=== PATIENT | female | born 1950 | race Caucasian/White ===

== ENCOUNTER 2016-04-30 11:58 | Inpatient (IN) | payer OTHER, MEDICARE ==
[~2016-04-30] VITALS: Ht 160 cm; Wt 50.3 kg
[2016-05-12] MEDS ORDERED: LEUC5TAB PO (11:36)
[2016-05-12] MEDS ORDERED: FOLI1TAB4 PO (11:36)
[2016-05-12] MEDS ORDERED: SELE125T PO (11:36)
[2016-05-12] MEDS ORDERED: METH2.5T PO (11:36)
[2016-05-12] MEDS ORDERED: TOFA5TAB PO (11:36)
[2016-05-12] MEDS ORDERED: COQ-50CA2 PO (11:36)
--- NOTE | 2016-05-27 00:12 | MH ---
cc: SANDRA VEGA DATE OF ADMISSION: 05/27/2016 ADMITTING DIAGNOSIS: Malfunctioning right total knee replacement arthroplasty. HISTORY OF PRESENT ILLNESS: This patient is a 65 year-old female with juvenile onset rheumatoid arthritis. The patient many years ago came to total knee replacement arthroplasty on the right. She is having significant malfunction of the right knee. She has significant subluxation with severe wear of the components. She presents now for revision knee replacement arthroplasty. PAST MEDICAL HISTORY: See attached notes. SOCIAL HISTORY, FAMILY HISTORY, AND REVIEW OF SYSTEMS: See attached notes. PHYSICAL EXAMINATION: GENERAL: The patient is a 65 year-old female in moderate distress with her right knee. HEENT: Normocephalic, atraumatic. Pupils equal, round, reactive to light and accommodation. Extraocular motions intact. NECK: Supple. CHEST: Clear. HEART: Regular rate and rhythm. ABDOMEN: Soft, nontender, normoactive bowel sounds. MUSCULOSKELETAL EXAMINATION: Right knee, pain with range of motion, well-healed anterior incision, marked restricted range of motion, moderate deformity, moderate instability. Neurologic and vascular examination is within normal limits. Chronic rheumatoid changes are seen in both upper and lower extremities. IMPRESSION: 1. Status post right total knee replacement arthroplasty. 2. Malfunctioning right total knee replacement arthroplasty. 3. History of juvenile rheumatoid arthritis. PLAN: Revision right total knee replacement arthroplasty. CONSENT: There are risks with surgery including infection, bleeding, loss of motion, continued pain, need for further surgery, neurologic or vascular injury, etc. The patient understands these issues and wishes to press on with surgery as outlined above. Sandra Vega MD [facility] /11:37 PM /12:00 AM
[2016-05-27] MEDS ORDERED: METOPROLOL TARTRATE 25 MG TAB PO PRN (10:00)
[2016-05-27] MEDS ORDERED: INSULIN HUMAN REGULAR 1,000 UNITS/10 ML VIAL SQ PRN (10:00)
[2016-05-27] MEDS ORDERED: LACTATED RINGER'S 1000 ML IV SCH (10:00)
[2016-05-27] MEDS ORDERED: SODIUM CHLORID 0.9% 500 ML IV SCH (10:00)
[2016-05-27] MEDS ORDERED: ceFAZolin 2 GM PREMIX 50 ML IV SCH (10:00)
[2016-05-27] MEDS: POVIDONE IODINE 7.5% SCRUB 118 ML BOTTLE TOP SCH (10:00)
[2016-05-27] MEDS ORDERED: VANCOMYCIN 1000 MG/NS 250 ML (for <70 kg) IV SCH ×2 (10:00)
[2016-05-27 10:26] VITALS: BP 175/92; PULSE 83; RESP 18; TEMP 98.7; O2SAT 97
[2016-05-27] MEDS ORDERED: GENTAMICIN SULFATE 80 MG/2 ML VIAL ONE (10:28)
[2016-05-27] MEDS: EXPAREL PERI-ARTICULAR INJECTION (TOTAL VOL. 60 ML) P-ARTICULR SCH ×4 (11:00→13:17)
[2016-05-27] MEDS: TRANEXAMIC ACID IV SCH ×2 (11:00→12:02)
[2016-05-27] MEDS: SODIUM CHLORIDE 0.9% IV SCH ×2 (11:00→12:02)
[2016-05-27] MEDS ORDERED: WALKER WHEELS/F1 MIS (11:02)
[2016-05-27] MEDS ORDERED: CPMMACHINE (11:02)
[2016-05-27] MEDS ORDERED: MISC-163 (11:03)
--- NOTE | 2016-05-27 11:05 | HHI.DS ---
Discharge Summary Admission Date May 27, 2016 at 08:57 Discharge Date: May 30, 2016 Admitting Diagnosis see below Diagnosis: (1) Right knee pain Diagnosis: Principal (2) Mechanical complic of internal orthopedic device, implant or graft Diagnosis: Principal (3) Presence of total right knee joint prosthesis Diagnosis: Principal Procedures Revisional right total knee arthroplasty Brief History This is a 65 year old female rheumatoid patient with a previous right knee replacement in [id number]. She did well for many years. She began having increased pain a year ago. She sought out medical treatment after attempting activity changes. Imaging studies were performed. There was some concern over loosening and osteolysis about the prosthesis. After discussing treatment options, surgical treatment was recommended and she elected to move forward with surgical revision. Hospital Course Surgical treatment was performed on the day of admission without complication. She recovered well in PACU and was very comfortable because of her RLE block. She was transferred to the orthopaedic floor. Pain was controlled with IV and oral medications. DVT prophylaxis was initiated pod#1. She was compliant with physical therapy and all TKA precautions. After 3 days she was found to be stable and discharged to detention with instruction to continue her physical therapy and to pursue a high fiber diet. Pt Condition on Discharge: Stable Discharge Disposition: Discharge to SNF Discharge Instructions Diet Instructions: High Fiber Diet Activities You Can Perform: Weight Bearing as Lynne Additional Activity Instruc.: TKA precautions New Medications: 3-in-1 Bedside Toilet (3-in-1 Bedside Toilet) 1 Mis Mis 1 EA .ROUTE DIRECTED #1 EA CPM-Continuous Passive Motion Machine (CPM-Continuous Passive Motion Machine) 1 Ea Device 1 EA .ROUTE DIRECTED #1 Ref 0 EA Walker with Front Wheels (Walker with Front Wheels) 1 Mis Mis 1 EA .ROUTE DIRECTED #1 Ref 0 EA Oxycodone-Acetaminophen (Oxycodone-Acetaminophen) 5-325 mg Tab 1 TAB PO Q4H PRN PAIN LESS THAN 5 ON SCALE #50 TAB Rivaroxaban (Xarelto) 10 Mg Tab 10 MG PO Q24H Prevent Blood Clot #15 TAB Continued Medications: Coenzyme Q10 (Ubidecarenone) (Coq-10) 50 Mg Cap 50 MG PO DAILY Folic Acid (Folate) 1 Mg Tab 800 MCG PO DAILY Nutritional Supplement Ref 0 TAB Leucovorin (Leucovorin) 5 Mg Tab 10 MG PO WEEKLY Methotrexate (Methotrexate) 2.5 Mg Tab 15 MG PO Q7D Ref 0 TAB Selenium (Selenimin) 125 Mcg Tab 125 MG PO DAILY Nutritional Supplement Ref 0 TAB Tofacitinib (Xeljanz) 5 Mg Tab 5 MG PO BID Arthritis #60 Ref 0 TAB Gladis Marie May 27, 2016 11:05
[2016-05-27] MEDS ORDERED: APREPITANT 40 MG CAP ONE (11:07)
[2016-05-27] MEDS ORDERED: MIDAZOLAM HCL 2 MG/2 ML VIAL ONE ×2 (11:12→12:17)
[2016-05-27] MEDS ORDERED: DEXAMETHASONE SOD PHOS 4 MG/ML VIAL ONE (11:26)
[2016-05-27] MEDS ORDERED: ceFAZolin INJ 1,000 MG VIAL ONE (11:57)
[2016-05-27] MEDS ORDERED: LACTATED RINGER'S 1000 ML INJ 1,000 ML IV ONE (12:10)
[2016-05-27] MEDS ORDERED: PROPOFOL 200 MG/20 ML AMP IV ONE (12:10)
[2016-05-27] MEDS ORDERED: BUPIVACAINE HCL PF 0.5% 30 ML VIAL NB ONE ×2 (12:44)
[2016-05-27] MEDS ORDERED: DEXAMETHASONE SOD PHOS PF 10 MG/ML VIAL IV ONE (12:45)
[2016-05-27] MEDS ORDERED: XARE10TA PO (15:43)
[2016-05-27] MEDS ORDERED: OXYC1TAB63 PO (15:43)
[2016-05-27] MEDS ORDERED: MISCELLANEOUS PHARMACY INFORMATION XX ONE (15:45)
[2016-05-27] MEDS ORDERED: SODIUM CHLORIDE 0.9% FLUSH 5 ML FLUSH IVF PRN (15:45)
[2016-05-27] MEDS ORDERED: MORPHINE SULFATE 8 MG/ML INJ IM PRN (15:45)
[2016-05-27] MEDS ORDERED: TEMAZEPAM 15 MG CAP PO PRN (15:45)
[2016-05-27] MEDS ORDERED: oxyCODONE/ACETAMINOPHEN 5 MG/325 MG TAB PO PRN ×2 (15:45)
[2016-05-27] MEDS ORDERED: MISCELLANEOUS NURSING INFORMATION XX PRN (15:45)
--- NOTE | 2016-05-27 15:52 | PD.OP ---
cc: Pierre Pride MD Operative Report Date of Surgery: May 27, 2016 Preoperative Diagnosis: Malfunctioning right total knee replacement arthroplasty. Loosening right knee components. Where a polyethylene right knee Postoperative Diagnosis: Same. Global metallosis right knee Procedure: Revision right total knee replacement arthroplasty, 3 components Anesthesia: Spinal with block Surgeon: Pierre Pride Inside Sales Manager(s): ISAI Spence Operation and Findings: EBL: 250 cc INDICATION: This patient presents with long-standing arthritis of the knee. She has long-standing rheumatoid arthritis. Over 20 years ago she came to right total knee replacement arthroplasty. She is having evidence of global failure of the right total knee with subluxation and evidence of significant metallosis in the knee with wear through the polyethylene. She presents now for revision arthroplasty NOTE: Kaylen Spence PA-C was present for the entire surgical procedure as my certified physician assistant. In my medical opinion her skill and care was necessary for proper management of this patient. TOURNIQUET TIME: 134 minutes COMPANY: [employer] FEMUR: Size 2, posterior stabilized, 90 mm x 13 mm cemented stem TIBIA: Size 3, fixed bearing, 60 mm cemented stem PATELLA: 38 mm POLYETHYLENE INSERT: 20 mm, routine posterior stabilized PROCEDURE: This patient was brought the operating room and anesthetized in the supine position. The patient was positioned supine on the table. The tourniquet was placed about the thigh, and the leg was scrubbed with alcohol followed by Hibiclens followed by ChloraPrep and draped sterilely. A timeout was done, and antibiotics were given. After exsanguination the tourniquet was inflated to 250 mmHg. the previous incision was excised. A medial parapatellar arthrotomy was performed. Significant metallosis was found. A total capsulectomy was performed. It was where through the polyethylene lateral posterior as well as posterior medial. This had worn through the tibial plate, almost completely posterior and lateral. Using a combination of osteotomes and saw, the patellar component was loosened. A freehand cut was made allowing sizing for a 38 mm all polyethylene component. Drill holes were made and a metal cap was placed over the exposed patella. The attention was directed to the femur. Osteotomes were used to loosen the femoral component. This was removed in a retrograde fashion. Bone was salvaged to avoid significant buildup. The attention was directed to the canal which was reamed and a temporary guide placed. We performed distal anterior posterior and chamfer cuts for a #2 femoral component. We utilized a regular box for a routine posterior stabilized component. The attention was directed to the tibia. Osteotome was used to loosen the tibial component. It was partially loose to begin with. This was removed in a retrograde fashion. This was reamed appropriately and then cut with an intramedullary guide. We removed a 0 mm from the posterior medial corner removing approximately 68-9 mm anteriorly and about the same laterally. This was then trialed and found that a 20 mm insert fit best stabilizing in full extension and full flexion. The bony surfaces were prepared. The components were assembled on the back table. 2 separate packs of methacrylate were mixed one for the tibia and one for the femur. We needed a third batch for the patella. We cemented the tibia first. We used a #6 Pelikonuy cement restrictor and filled the canal retrograde and pressurized. The component was in proper rotation based on intraoperative measurements. We cemented the femoral component and a likewise fashion. Cementing was utilized because of the patient's severe osteopenia and concern of stress risers associated with an uncemented stem which would needed to be 18- 20 mm. The cement was allowed harden. A trial reduction showed that a 20 mm insert fit best. The tourniquet was let down. Hemostasis was controlled. On the back table a third batch of methyl methacrylate was mixed and the patellar components cemented without difficulty. The final plastic was inserted and the knee reduced. The knee range of motion was from full extension to 125 flexion. No instability was noted. Overall alignment was very satisfactory. A drain was brought through a separate stab incision. The arthrotomy was repaired with interrupted #1 Vicryl suture, subcutaneous tissue 2-0 Vicryl suture and skin with metallic meg A sterile dressing was applied. Sponge counts, needle counts and instrument counts were all correct. The patient tolerated procedure well and was taken to recovery in satisfactory condition. FINDINGS: A Aisha metallosis. There was loosening of the tibial component. There was some subsidence posteriorly. There were multiple screws within the tibial component which was removed without difficulty. The final solution was very satisfactory. Pierre Pride MD May 27, 2016 15:52
[2016-05-27] MEDS ORDERED: KETAMINE HCL 500 MG/5 ML VIAL ONE (15:53)
[2016-05-27] MEDS ORDERED: DO NOT ADM ANY ANTICOAGULANT DRUGS XX PRN (16:00)
[2016-05-27] MEDS ORDERED: Post-op Orders (for Pharmacy) MISC XX ONE (16:00)
[2016-05-27] MEDS ORDERED: *morphine SULFATE 8 MG/ML PERIprocedure ONLY ONE (16:19)
[2016-05-27] MEDS: LACTATED RINGER'S 1000 ML INJ 1,000 ML IV SCH (16:30)
--- NOTE | 2016-05-27 16:46 | RADRPT ---
EXAM DATE/TIME: 05/27/2016 16:11 [facility] COMPARISON: No previous studies available for comparison. INDICATIONS : Post OP. MEDICAL HISTORY : None. SURGICAL HISTORY : None. ENCOUNTER: Initial ACUITY: 1 day PAIN SCORE: Non-responsive. LOCATION: Right knee FINDINGS: Total knee arthroplasty with longstem femoral and tibial components and with hyperdense packing withi n the marrow of the proximal tibia and distal femur. Alignment is near-anatomic. Surgical drains an d multiple skin meg are present. CONCLUSION: Postsurgical findings from total knee arthroplasty. Sammy Byrnes MD on May 27, 2016 at 16:43 Board Certified Radiologist. This report was verified electronically.
[2016-05-27 18:20] VITALS: BP 128/66; PULSE 72; RESP 17; TEMP 96; O2SAT 99
[2016-05-27] MEDS: MAGNESIUM HYDROXIDE SUSP 30 ML CUP PO SCH (19:24)
[2016-05-27] MEDS: SODIUM CHLORIDE 0.9% FLUSH 5 ML FLUSH IVF SCH (19:27)
[2016-05-27] MEDS: SENNOSIDES 8.6 MG TAB PO SCH (19:27)
[2016-05-27 20:00] VITALS: BP 97/53; PULSE 86; RESP 18; TEMP 97.4; O2SAT 98
[2016-05-27] MEDS: ONDANSETRON HCL 4 MG/2 ML VIAL IV PUSH PRN (20:29)
[2016-05-28] VITALS (7 sets, daily range): BP systolic 98–138; BP diastolic 47–96; PULSE 70–88; RESP 16–20; TEMP 96.3–98; O2SAT 94–98
[2016-05-28] MEDS: LACTATED RINGER'S 1000 ML INJ 1,000 ML IV SCH ×2 (04:30→17:00)
[2016-05-28 05:17] LABS: HEMATOCRIT 28.4 % (35.0-46.0); REVIEW FLAG FINAL
--- NOTE | 2016-05-28 07:47 | PD.ORT.PN ---
Subjective Subjective Remarks Right knee very comfortable as she is still getting relief from the block. Weakness also due to block. Sensation toes'just starting to return'. No other complaints. Mild nausea yesterday but resolved. No CP, SOB, abd pain. Planning on d/c to SNF. Objective Vitals Vital Signs Date Time Temp Pulse Resp B/P Pulse Ox O2 Delivery O2 Flow Rate FiO2 05/28/16 04:00 96.3 88 18 98/58 96 05/28/16 00:00 96.3 81 20 106/67 98 05/27/16 20:00 97.4 86 18 97/53 98 05/27/16 18:20 96.0 72 17 128/66 99 05/27/16 18:07 Nasal Cannula 2.00 05/27/16 17:00 97.2 74 14 119/69 98 Room Air 05/27/16 16:45 65 14 131/73 96 Room Air 05/27/16 16:30 69 14 111/66 96 Room Air 05/27/16 16:15 77 14 114/74 98 Nasal Cannula 2 05/27/16 15:59 97.6 85 14 120/76 98 Nasal Cannula 2 05/27/16 10:26 98.7 83 18 175/92 97 I/O 05/27/16 05/27/16 05/27/16 05/28/16 05/28/16 05/28/16 07:00 15:00 23:00 07:00 15:00 23:00 Intake Total 2190 ml 610 ml Output Total 1690 ml 360 ml Balance 500 ml 250 ml Intake Oral 240 ml 240 ml IV Total 550 ml 370 ml Other 1400 ml Output Urine Total 1325 ml 300 ml Drainage Total 265 ml 60 ml Estimated Blood Loss 100 ml # Bowel Movements 0 0 Result Diagram: 05/28/16 0450 Procedures Revisional right total knee arthroplasty Objective Remarks Laying in bed, CKS right leg NAD VSS RLE CKS in place, dressing c/d/i, drain in place, mild swelling and warmth thigh and calf supple, neg homans motor could not be assessed, +/- sens foot, +nvi Assessment & Plan Ortho Post Op Day #: 1 Problem List: (1) Right knee pain (2) Mechanical complic of internal orthopedic device, implant or graft (3) Presence of total right knee joint prosthesis Assessment and Plan pod#1 s/p Rev R TKA Pain well controlled. Block yet to wear off. PO pain meds as needed. Xarelto 10mg qd. IS encouraged. PT - WBAT RLE w walker. CKS when in bed. D/C right knee drain. Ok to redress drain site. Hold incision site dressing. D/C planning, SNF tuesday. Prefers [facility] if possible. F/U in 2 weeks as scheduled. Gladis Marie May 28, 2016 07:47
--- NOTE | 2016-05-28 07:47 | HHI.DCPOC ---
Discharge Care Plan Diagnosis: (1) Right knee pain (2) Mechanical complic of internal orthopedic device, implant or graft (3) Presence of total right knee joint prosthesis Your Health Problems Are: Incision/Drains Goals to Promote Your Health * To prevent worsening of your condition and complications * To maintain your health at the optimal level Directions to Meet Your Goals Take your medications as prescribed Follow your dietary instruction Follow activity as directed Keep your appointments as scheduled Take your immunizations and boosters as scheduled If your symptoms worsen call your PCP, if no PCP go to Urgent Care Center or Emergency Room Smoking is Dangerous to Your Health. Avoid second hand smoke Call the 24-hour hour crisis hotline for domestic abuse at Gladis Marie May 28, 2016 07:47
[2016-05-28] MEDS ORDERED: COENZYME Q10 50 MG PO SCH (09:00)
[2016-05-28] MEDS ORDERED: SELENIUM PO SCH (09:00)
[2016-05-28] MEDS: FOLIC ACID 1 MG TAB PO SCH (09:00)
[2016-05-28] MEDS: SODIUM CHLORIDE 0.9% FLUSH 5 ML FLUSH IVF SCH ×2 (09:00→20:43)
[2016-05-28] MEDS ORDERED: TOFACITINIB 5 MG PO SCH (09:00)
[2016-05-28] MEDS: MAGNESIUM HYDROXIDE SUSP 30 ML CUP PO SCH ×2 (09:00→20:42)
[2016-05-28] MEDS: POVIDONE IODINE 7.5% SCRUB 118 ML BOTTLE TOP SCH (10:00)
[2016-05-28] MEDS: EXPAREL PERI-ARTICULAR INJECTION (TOTAL VOL. 60 ML) P-ARTICULR SCH ×2 (11:00)
[2016-05-28] MEDS: TRANEXAMIC ACID IV SCH (11:00)
[2016-05-28] MEDS: SODIUM CHLORIDE 0.9% IV SCH (11:00)
[2016-05-28] MEDS: RIVAROXABAN 10 MG TAB PO SCH (14:05)
[2016-05-28] MEDS: SENNOSIDES 8.6 MG TAB PO SCH (20:43)
[2016-05-29] VITALS: BP 110/53; PULSE 82; RESP 18; TEMP 97.8; O2SAT 97
[2016-05-29] MEDS: LACTATED RINGER'S 1000 ML INJ 1,000 ML IV SCH ×2 (05:30→18:00)
[2016-05-29 05:51] LABS: HEMATOCRIT 26.3 % (35.0-46.0); REVIEW FLAG FINAL
[2016-05-29 08:00] VITALS: BP 130/61; PULSE 80; RESP 18; TEMP 97.2; O2SAT 97
[2016-05-29] MEDS: ONDANSETRON HCL 4 MG/2 ML VIAL IV PUSH PRN (08:51)
[2016-05-29] MEDS: SODIUM CHLORIDE 0.9% FLUSH 5 ML FLUSH IVF SCH ×2 (08:51→21:00)
[2016-05-29] MEDS: MAGNESIUM HYDROXIDE SUSP 30 ML CUP PO SCH ×2 (08:51→21:00)
[2016-05-29] MEDS: FOLIC ACID 1 MG TAB PO SCH (08:51)
--- NOTE | 2016-05-29 09:00 | PD.ORT.PN ---
Subjective Subjective Remarks Patient comfortable. Pain controlled. Objective Vitals Vital Signs Date Time Temp Pulse Resp B/P Pulse Ox O2 Delivery O2 Flow Rate FiO2 05/29/16 00:00 97.8 82 18 110/53 97 05/28/16 20:00 97.8 82 18 110/53 97 05/28/16 16:00 98.0 77 16 138/70 94 05/28/16 12:00 98.0 88 17 112/47 98 05/28/16 09:20 96 I/O 05/28/16 05/28/16 05/28/16 05/29/16 05/29/16 05/29/16 07:00 15:00 23:00 07:00 15:00 23:00 Intake Total 610 ml 720 ml 240 ml Output Total 360 ml 1870 ml Balance 250 ml -1150 ml 240 ml Intake Oral 240 ml 720 ml 240 ml IV Total 370 ml Output Urine Total 300 ml 1850 ml Drainage Total 60 ml 20 ml # Voids 2 # Bowel Movements 0 0 0 Result Diagram: 05/29/16 0502 Procedures Revisional right total knee arthroplasty Objective Remarks Laying in bed, CKS right leg NAD VSS RLE CKS in place, dressing c/d/i, drain in place, mild swelling and warmth thigh and calf supple, neg homans motor could not be assessed, +/- sens foot, +nvi Assessment & Plan Problem List: (1) Right knee pain (2) Mechanical complic of internal orthopedic device, implant or graft (3) Presence of total right knee joint prosthesis Assessment and Plan pod#2 s/p Rev R TKA Pain well controlled. Block yet to wear off. Prescription for Roxicodone 5 mg PO written Xarelto 10mg qd. IS encouraged. PT - WBAT RLE w walker. CKS when in bed. D/C right knee drain. Ok to redress drain site. Hold incision site dressing. D/C planning, SNF tuesday. [facility] if possible. F/U in [address] Sow present during the assessment of patient. Aurelio Cosby May 29, 2016 09:00
[2016-05-29] MEDS: POVIDONE IODINE 7.5% SCRUB 118 ML BOTTLE TOP SCH (10:00)
[2016-05-29 12:00] VITALS: BP 158/65; PULSE 95; RESP 18; TEMP 99.4; O2SAT 95
[2016-05-29] MEDS: RIVAROXABAN 10 MG TAB PO SCH (15:22)
[2016-05-29 16:00] VITALS: BP 133/103; PULSE 88; RESP 18; TEMP 98.8; O2SAT 97
[2016-05-29 20:00] VITALS: BP 133/64; PULSE 85; RESP 18; TEMP 98.7; O2SAT 97
[2016-05-29] MEDS: SENNOSIDES 8.6 MG TAB PO SCH (21:00)
[2016-05-30 00:12] VITALS: BP 151/65; PULSE 90; RESP 18; TEMP 99.6; O2SAT 96
[2016-05-30 05:14] VITALS: BP 125/65; PULSE 90; RESP 18; TEMP 98.2; O2SAT 96
[2016-05-30] MEDS: LACTATED RINGER'S 1000 ML INJ 1,000 ML IV SCH (06:30)
[2016-05-30 08:00] VITALS: BP 137/75; PULSE 98; RESP 19; TEMP 96.9; O2SAT 97
[2016-05-30] MEDS: SODIUM CHLORIDE 0.9% FLUSH 5 ML FLUSH IVF SCH (09:41)
[2016-05-30] MEDS: FOLIC ACID 1 MG TAB PO SCH (09:41)
[2016-05-30] MEDS: MAGNESIUM HYDROXIDE SUSP 30 ML CUP PO SCH (09:41)
--- NOTE | 2016-05-30 11:24 | PD.ORT.PN ---
Subjective Subjective Remarks Pt comfortable Objective Vitals Vital Signs Date Time Temp Pulse Resp B/P Pulse Ox O2 Delivery O2 Flow Rate FiO2 05/30/16 09:41 Room Air 05/30/16 08:00 96.9 98 19 137/75 97 05/30/16 05:14 98.2 90 18 125/65 96 05/30/16 00:12 99.6 90 18 151/65 96 05/29/16 20:00 98.7 85 18 133/64 97 05/29/16 18:41 Room Air 05/29/16 16:00 98.8 88 18 133/103 97 05/29/16 12:00 99.4 95 18 158/65 95 I/O 05/29/16 05/29/16 05/29/16 05/30/16 05/30/16 05/30/16 07:00 15:00 23:00 07:00 15:00 23:00 Intake Total 240 ml 720 ml 240 ml Balance 240 ml 720 ml 240 ml Intake Oral 240 ml 720 ml 240 ml # Voids 2 6 1 2 # Bowel Movements 0 1 0 0 Result Diagram: 05/29/16 0502 Procedures Revisional right total knee arthroplasty Objective Remarks Using CPM NAD VSS RLE dressing c/d/i, mild serous staining of dressing mild swelling and warmth thigh and calf supple, neg homans motor could not be assessed, +/- sens foot, +nvi Assessment & Plan Problem List: (1) Right knee pain (2) Mechanical complic of internal orthopedic device, implant or graft (3) Presence of total right knee joint prosthesis Assessment and Plan pod#3 s/p Rev R TKA Pain well controlled. Prescription for Roxicodone 5 mg PO written Xarelto 10mg qd. IS encouraged. PT - WBAT RLE w walker. CKS when in bed. Leave dressing in place. D/C today- [facility] F/U in 2 weeks as scheduled. Jose Sow MD May 30, 2016 11:24
[2016-05-30 12:00] VITALS: BP 122/66; PULSE 89; RESP 18; TEMP 99; O2SAT 97
[2016-05-30] MEDS: RIVAROXABAN 10 MG TAB PO SCH (14:58)
== END 2016-05-30 16:43 | DRG 468 ==
LOC: EDUNIT# 05-11 12:30 → HSDI 05-27 08:57 → N06B 05-27 18:18
PROVIDERS: ADMIT Orthopaedic Surgery Orthopaedic Surgery of the Spine; ATTEND Orthopaedic Surgery Orthopaedic Surgery of the Spine
PROC: 0SPC0JZ Removal of Synthetic Substitute from Right Knee Joint, Open Approach (ICD-10-PCS; 2016-05-27)
PROC: 3E0T3CZ (ICD-10-PCS; 2016-05-27)
PROC: 3E0T3CZ (ICD-10-PCS; 2016-05-27)
PROC: 3E0T3CZ (ICD-10-PCS; 2016-05-27)
PROC: 0SRC0J9 Replacement of Right Knee Joint with Synthetic Substitute, Cemented, Open Approach (ICD-10-PCS; principal; 2016-05-27 11:47)
DX: T84.062A Wear of articular bearing surface of internal prosthetic right knee joint, initial encounter (principal); M08.00 Unspecified juvenile rheumatoid arthritis of unspecified site; Y79.2 Prosthetic and other implants, materials and accessory orthopedic devices associated with adverse incidents; Y92.9 Unspecified place or not applicable; Y83.8 Other surgical procedures as the cause of abnormal reaction of the patient, or of later complication, without mention of misadventure at the time of the procedure; R11.0 Nausea
CPT/HCPCS: 73560; 85014; 85018; 86850; 86900; 86901; 86920; 94150; C1776; C9290; J0690; J1100; J1580; J2250; J2270; J2405; J3010; J3370; J7050; J7120; J8501; L1830

== ENCOUNTER → 2016-05-12 | Outpatient (CLI) | payer OTHER ==
[~2016-05-12] MED LIST: COQ-50CA2 PO; CPMMACHINE; FOLI1TAB4 PO; LEUC5TAB PO; METH2.5T PO; MISC-163; OXYC1TAB63 PO; SELE125T PO; TOFA5TAB PO; WALKER WHEELS/F1 MIS; XARE10TA PO
== END ==
LOC: CPRE 11:14
PROVIDERS: ATTEND Orthopaedic Surgery Orthopaedic Surgery of the Spine
DX: Z01.810 Encounter for preprocedural cardiovascular examination (principal); Z01.812 Encounter for preprocedural laboratory examination; M17.11 Unilateral primary osteoarthritis, right knee